=== PATIENT | female | born 1965 | race African-American/Black ===

== ENCOUNTER 2019-05-29 21:54 | Emergency (ER) | payer OTHER ==
[2019-05-29 22:25] VITALS: BP 144/76; PULSE 88; TEMP 98.6; BMI 46.8
--- NOTE | 2019-05-29 23:17 | PDOC ---
History of Present Illness - General Chief Complaint: Palpitations Stated Complaint: HIGH BLOOD PRESSURE Time Seen by Provider: 05/29/19 23:08 History Source: Patient Exam Limitations: Language Barrier - History of Present Illness Initial Comments: Hx limited bc patient speaks bruneian creole - [employer] used Sandrine Chavez Bennett is an obese 53 yo F w a hx of HCL who presents to the ER stating that her blood pressure has been elevated and she has been experiencing palpitations. She reports that yesterday when she had palpitations , but no chest pain, she checked her blood pressure and noted that it was elevated at 130/80. She took her blood pressure again today and noticed that it was again elevated at 140/80. She also states she has been feeling more tired lately and becomes short of breath when she does any physical exertion. She denies having any chest pain at rest or with exertion. She also denies any ankle /wrist swelling. She denies having a headache, nausea, vomiting, blurry vision, back pain, abdominal pain, or flank pain. PCP: Emerald Polo PSH: None reported Social Hx: Denies smoking, drinking, or other substance usage Allergies: NKA, NKDA Past History - Past Medical History Allergies/Adverse Reactions: Allergies Allergy/AdvReac Type Severity Reaction Status Date / Time No Known Allergies Allergy Verified 05/29/19 22:25 Home Medications: Ambulatory Orders NK [No Known Home Medication] 05/30/19 COPD: No Hypercholesterolemia: Yes - Psycho Social/Smoking Cessation Hx Smoking History: Never smoked Review of Systems - Review of Systems Able to Perform ROS?: Yes Comments:: CONSTITUTIONAL: Absent: fever, chills, diaphoresis, generalized weakness, malaise, loss of appetite HEENT: Absent: rhinorrhea, nasal congestion, throat pain, throat swelling, difficulty swallowing, mouth swelling, ear pain, eye pain, visual Changes CARDIOVASCULAR: Present: Palpitations Absent: chest pain, syncope, irregular heart rate, lightheadedness, peripheral edema RESPIRATORY: Present: Shortness of breath, dyspnea with exertion Absent: cough, orthopnea, wheezing, stridor, hemoptysis GASTROINTESTINAL: Absent: abdominal pain, abdominal distension, nausea, vomiting, diarrhea, constipation, melena, hematochezia GENITOURINARY: Absent: dysuria, frequency, urgency, hesitancy, hematuria, flank pain, genital pain MUSCULOSKELETAL: Absent: myalgia, arthralgia, joint swelling SKIN: Absent: rash, itching, pallor HEMATOLOGIC/IMMUNOLOGIC: Absent: easy bleeding, easy bruising, lymphadenopathy, frequent infections ENDOCRINE: Absent: unexplained weight gain, unexplained weight loss, heat intolerance, cold intolerance NEUROLOGIC: Absent: headache, focal weakness or paresthesias, dizziness, unsteady gait, seizure, mental status changes, bladder or bowel incontinence PSYCHIATRIC: Absent: anxiety, depression, suicidal or homicidal ideation, hallucinations. *Physical Exam - Vital Signs Last Vital Signs Temp Pulse Resp BP Pulse Ox 98.6 F 88 18 144/76 99 05/29/19 22:18 05/29/19 22:18 05/29/19 22:18 05/29/19 22:18 05/29/19 22:18 - Physical Exam Comments: GENERAL: Obese. Well developed, well nourished. Awake and alert. No acute distress. HEENT: Normocephalic, atraumatic. PERRLA, EOMI. No conjunctival pallor. Sclera are non- icteric. Moist mucous membranes. Oropharynx is clear. NECK: Supple. Full ROM. No JVD. No thyromegaly. No lymphadenopathy. CARDIOVASCULAR: Regular rate and rhythm. No murmurs, rubs, or gallops. Distal pulses are 2+ and symmetric. PULMONARY: No evidence of respiratory distress. Lungs clear to auscultation bilaterally. No wheezing, rales or rhonchi. ABDOMINAL: Soft. Non-tender. Non-distended. No rebound or guarding. No organomegaly. Normoactive bowel sounds. MUSCULOSKELETAL Normal range of motion at all joints. No bony deformities or tenderness. No CVA tenderness. EXTREMITIES: No cyanosis. No clubbing. No edema. No calf tenderness. SKIN: Warm and dry. Normal capillary refill. No rashes. No jaundice. NEUROLOGICAL: Alert, awake, appropriate. Cranial nerves 2-12 intact. No deficits to light touch in face, upper extremities and lower extremities. No motor deficits in the in face, upper extremities and lower extremities. Normal speech. Gait is normal without ataxia. PSYCHIATRIC: Cooperative. Good eye contact. Appropriate mood and affect. 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 She reports that yesterday when she had palpitations , but no chest pain, she checked her blood pressure and noted that it was elevated at 130/80. She took her blood pressure again today and noticed that it was again elevated at 140/80. She also states she has been feeling more tired lately and becomes short of breath when she does any physical exertion. She denies having any chest pain at rest or with exertion. She also denies any ankle /wrist swelling. She denies having a headache, nausea, vomiting, blurry vision, back pain, abdominal pain, or flank pain. Vital Signs Temp Pulse Resp BP Pulse Ox 98.6 F 88 18 144/76 99 05/29/19 22:18 05/29/19 22:18 05/29/19 22:18 05/29/19 22:18 05/29/19 22:18 DDx IBNLT: asymptomatic htn, hypertensive urgency vs emergency, ACS/SC, electrolyte/metabolic disturbance, heart failure, DILLON, widened mediastinum Plan: Labs, EKG, CXR, re-assess. EKG: NS rate of 75, narrow complexes, normal axis, no hypertrophy, no ST elevations or depressions, Q wave in lead III, no TWI's Labs: Elevated CK, trop negative. BNP normal. No DILLON. CXR: Unremarkable Re-assessment: Patient has been persistently asymptomatic in the ED and her BP is barely elevated. She is stable to go home and follow up with her PCP. Disposition: Home with PCP follow up Discharge - Discharge Information Problems reviewed: Yes Clinical Impression/Diagnosis: Palpitations Condition: Improved Disposition: HOME - Admission No - Follow up/Referral Referrals: Melani Corbin MD [Primary Care Provider] - Hakan Harden MD [Staff Physician] - - Patient Discharge Instructions Patient Printed Discharge Instructions: DI for Palpitations Additional Instructions: You came into the ER with palpitations. Your blood work was completely normal. Your electrocardiogram was also normal. Your chest x-ray was normal. Please schedule a follow up appointment with the recreation teacher we are referring you to in the next 3 to 5 days Please schedule a follow up appointment with your regular doctor in the next 10 days to make sure you are feeling well and getting better. Come back to the ER immediately if your pain worsens or you have any other new or worsening concerns. Thank you for coming to the [facility] ER. We hope you feel better soon! Print Language: TAJIK - Post Discharge Activity
--- NOTE | 2019-05-29 23:41 | PDOC ---
Attending Attestation - Resident Resident Name: Mitchel Sidhu - ED Attending Attestation I have performed the following: I have examined & evaluated the patient, The case was reviewed & discussed with the resident, I agree w/resident's findings & plan, Exceptions are as noted - HPI HPI: 05/30/19 04:45 53F pmh HLD, obese, here c/o palpitations. States she had an episode yesterday and noted a BP of 130/80. No cp, sob. - Physicial Exam PE: 05/30/19 04:46 Agree with exam as documented by resident - Medical Decision Making 05/30/19 04:46 low risk for acs f/u labs, ekg, cxr dispo per clinical course asymptomatic, no acute pathology dc home with pcp f/u
[2019-05-30 00:44] LABS: BASO % 0.4 % (0-2.0); EOS % 4.1 % (0-4.5); HEMATOCRIT 35.8 % (32.4-45.2); HEMOGLOBIN 11.5 GM/dL (10.7-15.3); LYMPH % 49.3 % (8-40); MCH 27.5 pg (25.7-33.7); MCHC 32.2 g/dl (32.0-36.0); MEAN CELL VOLUME 85.3 fl (80-96); MEAN PLT VOLUME 7.9 fl (7.5-11.1); MONO % 10.1 % (3.8-10.2); NEUT % 36.1 % (42.8-82.8); PLATELET COUNT 386 K/MM3 (134-434); RBC 4.19 M/mm3 (3.60-5.2); RDW 13.3 % (11.6-15.6); WHITE BLOOD COUNT 6.9 K/mm3 (4.0-10.0)
[2019-05-30 00:54] LABS: INR 1.04 (0.83-1.09); PROTHROMBIN TIME (PATIENT) 12.3 SEC (9.7-13.0)
[2019-05-30 01:08] LABS: ALBUMIN 3.8 g/dl (3.4-5.0); BILIRUBIN,TOTAL 0.2 mg/dL (0.2-1); BLOOD UREA NITROGEN 8.3 mg/dL (7-18); CALCIUM 8.8 mg/dL (8.5-10.1); MAGNESIUM 2.1 mg/dL (1.8-2.4); POTASSIUM 4.5 mmol/L (3.5-5.1); TOT PROT 7.1 g/dl (6.4-8.2)
--- NOTE | 2019-05-30 12:46 | EKG ---
Test Reason : Blood Pressure : / mmHG Vent. Rate : 075 BPM Atrial Rate : 075 BPM P-R Int : 164 ms QRS Dur : 084 ms QT Int : 372 ms P-R-T Axes : 054 024 023 degrees QTc Int : 415 ms NORMAL SINUS RHYTHM WHEN COMPARED WITH ECG OF 29-MAY-2019 21:52, NO SIGNIFICANT CHANGE WAS FOUND Confirmed by DENA ESCOBAR MD ([id number]) on 05/30/2019 12:46:11 PM Referred By: Confirmed By:DENA ESCOBAR MD
== END 2019-05-30 02:11 | disposition home or self-care (01) ==
LOC: JER 21:54
DX: R00.2 Palpitations (principal); E78.00 Pure hypercholesterolemia, unspecified
CPT/HCPCS: 36415; 71046-TC-FY; 80053; 82550; 82553; 83735; 83880; 84484; 85025; 85610; 93005; 93010; 99283-25